=== PATIENT | female | born 1975 | race Caucasian/White ===

== ENCOUNTER → 2016-07-31 | Outpatient (CLI) | payer BC ==
--- NOTE | 2016-08-01 09:35 | KCIC ---
Bilateral digital screening mammograms with CAD: HISTORY Routine screening COMPARISON Comparison is made to previous examinations dated 08/04/2014 and 08/12/2013. FINDINGS Breast density category C. The skin and nipples show no abnormalities. No abnormal lymph nodes are seen in the axilla. The breast parenchyma shows heterogeneous density. There appears to be a small nodular density centrally in the right breast on CC view measuring approximately 5.5 millimeters in size. This may represent a cyst but recommend further evaluation with ultrasound. There are no other dominant masses, suspicious calcifications or architectural distortions. IMPRESSION Small nodular density suggested centrally in the right breast on CC view. Recommend further evaluation with ultrasound. This study was interpreted with the benefit of Computerized Aided Detection (CAD). Mammography is not 100% sensitive in detecting breast cancer. Therefore, a self breast exam and a clinical breast exam are very important. A negative mammogram does not negate a clinically suspicious finding and should not result in a delay in biopsying a clinically suspicious abnormality. BI-RADS category 0: Incomplete. Ultrasound followup is recommended. This patient's information has been entered into a reminder system for the patient to be notified with the results of this examination and a target date for her next mammograms. Electronically signed by: Conchis Berger MD (Aug 01, 2016 09:33:35)
== END | disposition home or self-care (01) ==
LOC: KCIC MAMMO 13:13
PROVIDERS: ATTEND Family Medicine
DX: Z12.31 Encounter for screening mammogram for malignant neoplasm of breast (principal)
CPT/HCPCS: G0202; 77067

== ENCOUNTER → 2016-08-05 | Outpatient (CLI) | payer BC ==
--- NOTE | 2016-08-05 10:20 | KCIC ---
PROCEDURE Right breast ultrasound and diagnostic right mammogram. HISTORY Call back. Abnormality seen only on CC view of the right breast. COMPARISON Mammogram July 31, 2016. FINDINGS Initially, ultrasound imaging was performed of the right breast by survey technologist. Imaging was performed around the clock face as well as in the retroareolar region. No solid or cystic masses are identified. Normal, heterogeneous parenchyma is seen. Diagnostic right mammogram was then performed consisting of spot compression view of the right breast in CC projection. There is a day Other is a small well-circumscribed asymmetry located 4 centimeters posterior to the nipple, which may correspond to the abnormality seen on mammography; this may represent asymmetric breast parenchyma or possibly a small lymph node. Recommend followup diagnostic right mammogram in 6 months. IMPRESSION No solid or cystic mass is seen in the right breast by ultrasound. The mammographic abnormality may persist on the compression view, although mammographic abnormality may represent focus of breast parenchyma or possibly intraparenchymal lymph node. Recommend followup diagnostic right mammogram in 6 months. BIRADS: 3 - Probably Benign - Short interval follow-up suggested Follow Up: In 6 month(s) The images were reviewed with computer-aided detection. Patient information was entered into a reminder system with a target due date for the next mammogram. Statement of the [employer]: Mammography is the most sensitive method for findings small breast cancers, but it does not detect them all and is not a substitute for careful clinical examination. A negative mammogram does not negate a clinically suspicious finding and should not result in a delay in biopsying a clinically suspicious abnormality. Electronically signed by: Johnie Koo MD (Aug 05, 2016 10:18:53)
--- NOTE | 2016-08-05 10:20 | KCIC ---
PROCEDURE Right breast ultrasound and diagnostic right mammogram. HISTORY Call back. Abnormality seen only on CC view of the right breast. COMPARISON Mammogram July 31, 2016. FINDINGS Initially, ultrasound imaging was performed of the right breast by cardiac cath lab radiology technologist. Imaging was performed around the clock face as well as in the retroareolar region. No solid or cystic masses are identified. Normal, heterogeneous parenchyma is seen. Diagnostic right mammogram was then performed consisting of spot compression view of the right breast in CC projection. There is a day Other is a small well-circumscribed asymmetry located 4 centimeters posterior to the nipple, which may correspond to the abnormality seen on mammography; this may represent asymmetric breast parenchyma or possibly a small lymph node. Recommend followup diagnostic right mammogram in 6 months. IMPRESSION No solid or cystic mass is seen in the right breast by ultrasound. The mammographic abnormality may persist on the compression view, although mammographic abnormality may represent focus of breast parenchyma or possibly intraparenchymal lymph node. Recommend followup diagnostic right mammogram in 6 months. BIRADS: 3 - Probably Benign - Short interval follow-up suggested Follow Up: In 6 month(s) The images were reviewed with computer-aided detection. Patient information was entered into a reminder system with a target due date for the next mammogram. Statement of the [employer]: Mammography is the most sensitive method for findings small breast cancers, but it does not detect them all and is not a substitute for careful clinical examination. A negative mammogram does not negate a clinically suspicious finding and should not result in a delay in biopsying a clinically suspicious abnormality. Electronically signed by: Johnie Koo MD (Aug 05, 2016 10:19:14)
== END | disposition home or self-care (01) ==
LOC: KCIC US 09:20
PROVIDERS: ATTEND Family Medicine
DX: N63 Unspecified lump in breast (principal)
CPT/HCPCS: 76641; G0206; 77065

== ENCOUNTER → 2017-02-10 | Outpatient (CLI) | payer BC ==
--- NOTE | 2017-02-10 13:32 | KCIC ---
DATE: 02/10/17 EXAM: MAMMO LORI DIAG RT HISTORY: Follow-up abnormality seen on prior screening and subsequent diagnostic mammogram COMPARISON: Bilateral screening mammogram from 07/31/16 and diagnostic right mammogram and ultrasound from 08/05/16 This study was interpreted with the benefit of Computerized Aided Detection (CAD). TECHNIQUE: 2-D and 3-D CC and MLO views of the right breast were obtained FINDINGS: Breast Density: HETERO The breast parenchyma is heterogenously dense, which could reduce sensitivity of mammography. Breast parenchyma level C.. Previously seen nodular density in the retroareolar right breast is not seen. The tomographic images demonstrate no abnormality. The abnormality seen on prior exam was probably related to summation shadows . IMPRESSION: Negative exam BI-RADS CATEGORY: 1 NEGATIVE RECOMMENDED FOLLOW-UP: 6M 6 MONTH FOLLOW-UP mammogram will place the patient on her routine annual schedule PQRS compliance statement: Patient information was entered into a reminder system with a target due date for the next mammogram. Mammography is a sensitive method for finding small breast cancers, but it does not detect them all and is not a substitute for careful clinical examination. A negative mammogram does not negate a clinically suspicious finding and should not result in delay in biopsying a clinically suspicious abnormality. "Our facility is accredited by the [employer] Mammography Program."
== END | disposition home or self-care (01) ==
LOC: KCIC MAMMO 12:31
PROVIDERS: ATTEND Family Medicine
DX: R92.8 Other abnormal and inconclusive findings on diagnostic imaging of breast (principal)
CPT/HCPCS: G0206; G0279; 77061; 77065

== ENCOUNTER → 2017-03-23 | Outpatient (CLI) | payer BC ==
--- NOTE | 2017-03-23 10:45 | KCIC ---
Limited abdominal ultrasound History:Elevated liver enzymes. Findings: Aorta: No evidence of aneurysm. Inferior vena cava: Patent Pancreas: Unremarkable Liver: Coarse echogenicity compatible with fatty infiltration. Upper limits normal in size, 17.5 cm. Gallbladder: No evidence of cholelithiasis, gallbladder wall thickening or pericholecystic fluid. Bile ducts: No evidence of dilatation Right kidney: 11.5 cm longitudinal without hydronephrosis. Impression: No significant sonographic abnormality. Electronically signed by: Johnie Zaidi MD (03/23/2017 10:42 AM) [facility]
== END | disposition home or self-care (01) ==
LOC: KCIC US 08:54
PROVIDERS: ATTEND Family Medicine
DX: K76.0 Fatty (change of) liver, not elsewhere classified (principal)
CPT/HCPCS: 76705

== ENCOUNTER → 2017-11-13 | Outpatient (CLI) | payer BC | END | disposition home or self-care (01) | LOC: KCIC MAMMO 10:26 | DX: Z12.31 Encounter for screening mammogram for malignant neoplasm of breast (principal) | CPT/HCPCS: 77063; 77067 ==

== ENCOUNTER → 2017-11-17 | Outpatient (CLI) | payer BC | END | disposition home or self-care (01) | LOC: KCIC MAMMO 11:00 | DX: R92.8 Other abnormal and inconclusive findings on diagnostic imaging of breast (principal) | CPT/HCPCS: 77065 ==

== ENCOUNTER → 2018-11-29 | Outpatient (CLI) | payer BC ==
--- NOTE | 2018-11-29 13:16 | KCIC ---
Bilateral diagnostic digital mammograms with 3-D tomosynthesis: Reason for examination: Follow-up for stereotactic biopsy for calcifications. Comparison is made to previous studies dated 11/13/2017 and 07/31/2016. Bilateral mammograms in CC and oblique projections were obtained with 2-D imaging and 3-D tomosynthesis imaging on a Siemens Inspiration unit and reviewed on the workstation. Interpretation was made with the benefit of CAD. The skin and nipples show no abnormalities. No abnormal axillary lymph nodes are seen. The breast parenchyma is heterogeneously dense. (Breast density: Category C.) There continue to be small nodular parenchymal densities bilaterally which are stable. There are no new dominant masses, suspicious calcifications or architectural distortion. Biopsy clip remains present on the left. Impression: No evidence of malignancy. Recommend routine screening. Your patient's mammogram demonstrates that she has dense breast tissue (breast density category C or D), which could hide abnormalities, and if she has other risk factors for breast cancer that have been identified, she might benefit from supplemental screening tests that may be suggested by you as her ordering physician. Dense breast tissue, in and of itself, is a relatively common condition. Therefore, this information is not provided to cause undue concern, but rather to raise your awareness and to promote discussion with your patient regarding the presence of other risk factors, in addition to dense breast tissue. Your patient's mammography results will be sent to her. BI-RAD Category 2: Benign. "Our facility is accredited by the [employer] Mammography Program." This patient's information has been entered into a reminder system for the patient to be notified with the results of her examination and a target date for the next mammogram. Electronically signed by: Soco Berger MD (11/29/2018 1:13 PM) [id number]
== END | disposition home or self-care (01) ==
LOC: KCIC MAMMO 12:21
PROVIDERS: ATTEND Family Medicine
DX: N63.0 Unspecified lump in unspecified breast (principal); R92.8 Other abnormal and inconclusive findings on diagnostic imaging of breast
CPT/HCPCS: 77066; G0279; 77062

== ENCOUNTER → 2020-02-24 | Outpatient (CLI) | payer OTHER, BC ==
--- NOTE | 2020-02-24 17:41 | RAD ---
STUDY: MRI of the left shoulder without contrast INDICATION: Long head biceps tendon rupture. COMPARISON: None. TECHNIQUE: Multiplanar MR imaging of the left shoulder performed without the use of intravenous or intra-articular contrast. FINDINGS: AC joint: No significant AC joint arthrosis. No significant fluid distention of the subacromial subdeltoid bursa. Rotator cuff: Heterogeneous signal of the supraspinatus at the insertion could be a combination of tendinosis and tendon contusion given the proximal humerus fracture. Similar signal involves the infraspinatus and teres minor insertions. The subscapularis is intact. Maintained rotator cuff muscular bulk. Edema/hemorrhage tracks a short ways into the teres minor muscle. Mild edema-like signal along the inner margins of the infraspinatus, supraspinatus and subscapularis medial to the myotendinous junction likely relates to trauma. No confluent muscular edema to suggest subacute denervation. Labrum: SLAP-type tear extending to the posterior/superior aspect, images 8 through 11 series 6. Long head biceps tendon: Remains intact and normally located. Cartilage: Chondral defect at the mid anterior glenoid with mild depression of the subchondral bone plate, image 16 series 4. No full-thickness humeral head chondral defect is identified though a humeral head fracture does extend into the cartilage, image 14 series 8. Bones: Proximal humerus fracture with extensive surrounding marrow edema. Complete fracture across the surgical neck with mild impaction. A split fracture traverses the humeral head and extends to involve both the lesser and greater tuberosities, image 13 series 4. Miscellaneous: Shoulder joint effusion. Pericapsular edema/hemorrhage extending down the humeral shaft. Impression: 1. Proximal humerus fracture with impaction across the surgical neck and a split fracture component extending through the epiphysis and involving both the greater and lesser tuberosities. A small osteochondral defect at the mid anterior glenoid could be traumatic as well (image 16 series 4). The fracture places the patient at risk for avascular necrosis but there is no articular surface collapse at this time. 2. Favored a combination of tendinosis and tendon contusion involving the supraspinatus, infraspinatus and teres minor at their insertions. No high-grade or full-thickness rotator cuff tear. 3. Intact and normally located long head biceps tendon, as queried. 4. SLAP tear extending to the posterior/superior labrum. 5. Soft tissue sequela of trauma along the proximal humerus and a joint effusion. Electronically signed by: LLOYD ZHONG MD (02/24/2020 5:38 PM) [id number]
== END ==
LOC: MRI 14:50
PROVIDERS: ATTEND Family Medicine
DX: S42.302A Unspecified fracture of shaft of humerus, left arm, initial encounter for closed fracture (principal); M66.812 Spontaneous rupture of other tendons, left shoulder; M25.412 Effusion, left shoulder; X58.XXXA Exposure to other specified factors, initial encounter; Y93.89 Activity, other specified; Y92.89 Other specified places as the place of occurrence of the external cause; Y99.8 Other external cause status
CPT/HCPCS: 73221

== ENCOUNTER → 2020-06-22 | Outpatient (CLI) | payer BC, OTHER ==
--- NOTE | 2020-06-22 17:41 | KCIC ---
Bilateral digital screening mammograms with 3-D tomosynthesis: Reason for examination: Routine screening. Comparison is made to previous studies dated back to 08/04/2014. Bilateral mammograms in CC and oblique projections were obtained with 2-D imaging and 3-D tomosynthes is imaging on a Siemens Inspiration unit and reviewed on the workstation. Interpretation was made wit h the benefit of CAD. The skin and nipples show no abnormalities. No abnormal axillary lymph nodes are seen. The breast par enchyma is heterogeneously dense. (Breast density: Category C.) There continue to be small nodular pa renchymal densities in the left breast which are stable. In the right breast however there appears to be a small nodule developing posterior superiorly in the 10:00 C position approximately 11 cm from t he nipple and measuring 6.7 mm in size. In the right breast on cc view, there also appears to be a sm all nodule medial to the nipple line on cc view 6 cm from the nipple and measuring 5.4 mm in size. Th is may be located at approximately the 3:00 B position no suspicious calcifications are seen. Impression: Nodular densities at the 10:00 C position of the right breast and medially in the right breast on cc view probably around the 3:00 B position. Recommend further evaluation with ultrasound. Your patient's mammogram demonstrates that she has dense breast tissue (breast density category C or D), which could hide abnormalities, and if she has other risk factors for breast cancer that have bee n identified, she might benefit from supplemental screening tests that may be suggested by you as her ordering physician. Dense breast tissue, in and of itself, is a relatively common condition. Therefo re, this information is not provided to cause undue concern, but rather to raise your awareness and t o promote discussion with your patient regarding the presence of other risk factors, in addition to d ense breast tissue. Your patient's mammography results will be sent to her. BI-RAD Category 0: Incomplete. Needs additional imaging evaluation. "Our facility is accredited by the [employer] Mammography Program." This patient's information has been entered into a reminder system for the patient to be notified wit h the results of her examination and a target date for the next mammogram. Electronically signed by: Soco Berger MD (06/22/2020 5:39 PM) [facility]
== END ==
LOC: KCIC MAMMO 12:58
PROVIDERS: ATTEND Family Medicine
DX: Z12.31 Encounter for screening mammogram for malignant neoplasm of breast (principal)
CPT/HCPCS: 77063; 77067

== ENCOUNTER → 2020-06-29 | Outpatient (CLI) | payer BC ==
--- NOTE | 2020-06-29 16:04 | RAD ---
Examination: Limited right breast ultrasound INDICATION: 45-year-old woman recalled from screening for nodularity in the right breast. COMPARISON: Right mammograms of 08/12/2013, 11/13/2017, 08/30/2018 and 06/22/2020. Right breast ultrasoun d of 08/04/2014. TECHNIQUE: Grayscale and color Doppler imaging of the right breast along the 3:00 axis in the posteri or upper outer quadrant was performed in the areas of reported mammographic interest. FINDINGS: Benign duct ectasia in the medial right breast is identified at the 4:00 position 2 cm from the nippl e measuring up to 5 mm in diameter. This could explain the small nodule medial to the nipple line bes t seen on the CC screening mammographic view. In the posterior upper outer right breast at the 10:00 position 9 cm from the nipple, a 5 mm parallel orientation hypoechoic nodule is identified that could represent an island of fatty tissue within de nse glandular tissue. No axillary adenopathy is identified. Sonographic survey of the subareolar right breast revealed no suspicious findings. IMPRESSION: Probably benign findings of fibrocystic change. BI-RADS Category 3 Probably benign findings. Recommend 6 month follow-up right diagnostic mammogram and targeted right breast ultrasound. Electronically signed by: Thom Ball MD (06/29/2020 4:02 PM) [id number]
== END ==
LOC: US 14:38
PROVIDERS: ATTEND Family Medicine
DX: N63.11 Unspecified lump in the right breast, upper outer quadrant (principal)
CPT/HCPCS: 76641

== ENCOUNTER → 2021-08-21 | Outpatient (CLI) | payer BC ==
--- NOTE | 2021-08-21 17:10 | RAD ---
DATE: 08/21/2021 EXAM: US BREAST BILAT, MG BILAT SCREEN+LORI HISTORY: Due for annual mammogram. She missed her six-month follow-up of right breast abnormalities t hat was due in December 2020. Family history of sister with breast cancer at the age of 34 and mother a nd grandmother with breast cancer in their 60s. COMPARISON: Mammograms 06/22/2020, 11/29/2018, 11/17/2017 and right breast ultrasound 06/29/2020 This study was interpreted with the benefit of Computerized Aided Detection (CAD). Breast Density: SCATTERED The breast parenchyma shows scattered fibroglandular densities. Breast pare nchyma level B. FINDINGS: There is a 6 mm asymmetry in the outer left breast 6 cm from the nipple, around 2:00. Stabl e parenchyma nodularity in the right breast. No suspicious calcifications or architectural distortion in either breast. Ultrasound of the right breast was performed at 10 o'clock and 2 at 4 o'clock. At 10 o'clock 11 cm fr om the nipple, there is a normal-appearing intramammary lymph node. The previously seen probably gilda gn lesions 10 o'clock 9 cm from the nipple and 4 o'clock 2 cm from the nipple are not present on this exam. No lymphadenopathy in the right axilla. Ultrasound of the left breast was performed at 2 o'clock to 4 o'clock. At 2 o'clock 6 cm from the nip ple, there are mildly dilated ducts without internal debris or mass. At 3 o'clock 6 cm from the nipp le, there is an ovoid hypoechoic area, parallel in orientation with no shadowing or internal vascular ity, likely fibrocystic changes. This measures 1.0 x 0.8 x 0.4 cm. No lymphadenopathy in the left axi lla. IMPRESSION: 1. The previously seen probably benign hypoechoic lesions in the right breast on ultrasound 06/29/2020 are not seen on this exam. There is no new suspicious abnormality in the right breast. 2. There is mild ductal dilatation at 2:00 6 mm from the nipple in the left breast and a probably johana ign 1 cm hypoechoic lesion at 3:00 6 cm from the nipple in the left breast, likely fibrocystic change s. These may but do not definitely correspond with the 6 mm asymmetry in the outer left breast on tod ay's mammogram. 3. Recommend 6 month follow-up bilateral mammogram and bilateral ultrasound to ensure stability. BI-RADS CATEGORY: 3 PROBABLY BENIGN FINDING(S)-SHORT INTERVAL FOLLOW-UP SUGGESTED RECOMMENDED FOLLOW-UP: 6M 6 MONTH FOLLOW-UP PQRS compliance statement: Patient information was entered into a reminder system with a target due d ate for the next mammogram. Mammography is a sensitive method for finding small breast cancers, but it does not detect them all a nd is not a substitute for careful clinical examination. A negative mammogram does not negate a clin ically suspicious finding and should not result in delay in biopsying a clinically suspicious abnorma lity. "Our facility is accredited by the [employer] Mammography Program." Electronically signed by: Orin Nazario MD (08/21/2021 5:07 PM) [id number]
== END ==
LOC: MAMMO 13:37
PROVIDERS: ATTEND Family Medicine
DX: Z12.39 Encounter for other screening for malignant neoplasm of breast (principal); N60.42 Mammary duct ectasia of left breast; N64.89 Other specified disorders of breast
CPT/HCPCS: 77063; 77067; 76641-50